=== PATIENT | female | born 1990 | race Two or more races ===

== ENCOUNTER → 2016-11-21 | Outpatient (CLI) | payer OTHER ==
--- NOTE | 2016-11-21 20:09 | REP ---
Left wrist four views : There is no fracture or dislocation. Mineralization and joint spaces are normal. There are no calcifications or foreign bodies. Impression: Negative left wrist . Signed by Maurilio Prasad MD 11/21/2016 08:00 P
== END ==
LOC: M LRY 19:45
PROVIDERS: ATTEND Nurse Practitioner Family
DX: S69.92XA Unspecified injury of left wrist, hand and finger(s), initial encounter (principal); X58.XXXA Exposure to other specified factors, initial encounter; Y92.89 Other specified places as the place of occurrence of the external cause; Y93.89 Activity, other specified; Y99.8 Other external cause status
CPT/HCPCS: 73110; G0463

== ENCOUNTER → 2017-03-26 | Outpatient (CLI) | payer OTHER ==
[~2017-03-26] MED LIST: ESCI10TA2 PO; FIOR1CAP PO; IBUP1TAB7 PO; LORA10TA2 PO; TIZA2TA PO; ZONI25CA2 PO
--- NOTE | 2017-03-27 09:40 | REP ---
PA and lateral chest: The lung marino are clear. The cardiac size is normal [place], mediastinum, and bony thorax are unremarkable. Impression: Negative PA and lateral chest. Signed by Maurilio Prasad MD 03/27/2017 07:28 A
== END ==
LOC: M LRY 19:47
PROVIDERS: ATTEND Physician Assistant
DX: R06.02 Shortness of breath (principal)
CPT/HCPCS: 71020; 93005; G0463

== ENCOUNTER 2017-05-07 12:06 | Emergency (ER) | payer OTHER ==
[~2017-05-07] VITALS: Ht 167.6 cm; Wt 57.7 kg
[2017-05-07] MEDS ORDERED: ZONI25CA2 PO (12:16)
[2017-05-07] MEDS ORDERED: LORA10TA2 PO (12:16)
[2017-05-07] MEDS ORDERED: TIZA2TA PO (12:16)
[2017-05-07] MEDS ORDERED: ESCI10TA2 PO (12:16)
[2017-05-07] MEDS ORDERED: FIOR1CAP PO (12:16)
[2017-05-07] MEDS ORDERED: IBUP1TAB7 PO (12:16)
[2017-05-07] MEDS ORDERED: TRIMETHOBENZAMIDE HCL INJ 200 MG/2 ML VIAL (J3250) IM ONE (14:00)
[2017-05-07] MEDS ORDERED: diphenhydrAMINE INJ 50MG/ML VIAL (J1200) IV ONE (14:00)
--- NOTE | 2017-05-07 14:07 | REP ---
Head CT without contrast: History: Left facial numbness with headache. Comparison study: No comparison study. CT findings: Bone window settings demonstrate an intact bony calvarium. There is no evidence of skull fracture or incidental bony calvarial lesion. The visualized paranasal sinuses appear clear. No intraorbital abnormality is seen. On soft tissue window setting images; the lateral, third, and fourth ventricles are normal in size and position. Esparza-white differentiation pattern is normal above and below the tentorium. There are is no evidence of intracranial hemorrhage. No mass, edema, infarction, or midline shift is seen. No extra-axial fluid collection is appreciated. Impression: Negative noncontrast head CT. Signed by Shorty Zarco MD 05/07/2017 01:59 P
[2017-05-07] MEDS: KETOROLAC 30 MG/ML VIAL (J1885) IV ONE ×2 (14:10→14:15)
[2017-05-07] MEDS ORDERED: MORPHINE 2 MG/ML 1ML SYRINGE IV ONE (15:00)
[2017-05-07 15:27] VITALS: BP 117/82
== END 2017-05-07 15:30 | disposition home or self-care (01) ==
LOC: M ED 12:06
DX: G43.909 Migraine, unspecified, not intractable, without status migrainosus (principal); R20.2 Paresthesia of skin; J45.909 Unspecified asthma, uncomplicated; Z79.899 Other long term (current) drug therapy; Z88.1 Allergy status to other antibiotic agents; Z88.8 Allergy status to other drugs, medicaments and biological substances
CPT/HCPCS: 70450; 96372; 96374; 96375; 99283; J1200; J1885; J3250

== ENCOUNTER 2017-12-13 19:41 | Emergency (ER) | payer OTHER ==
[2017-12-13] MEDS: predniSONE 20 MG TAB PO (22:19)
[2017-12-13] MEDS: ALBUTEROL 90 MCG/ACT 8GM HFA INHALER INH (22:19)
== END 2017-12-13 23:14 | disposition home or self-care (01) ==
LOC: M ED 19:41
DX: J20.9 Acute bronchitis, unspecified (principal); J45.909 Unspecified asthma, uncomplicated; Z88.1 Allergy status to other antibiotic agents; Z88.8 Allergy status to other drugs, medicaments and biological substances; Z79.899 Other long term (current) drug therapy
CPT/HCPCS: 99284